=== PATIENT | male | born 1985 | race Caucasian/White ===

== ENCOUNTER 2019-03-24 00:08 | Emergency (ER) | payer SELFPAY ==
[2019-03-24 00:16] VITALS: BP 128/77; PULSE 75; TEMP 97.8; BMI 24.3
--- NOTE | 2019-03-24 00:27 | PDOC ---
History of Present Illness - General Chief Complaint: Dysphagia Stated Complaint: FEELS SOMETHING IN HIS THROAT Time Seen by Provider: 03/24/19 00:20 History Source: Patient Exam Limitations: No Limitations - History of Present Illness Initial Comments: 03/24/19 00:28 This is a 34-year-old male who comes in complaining of some dysphasia. Patient said he has a history of GERD in the past has had a number of upper GI endoscopies that did show some gastritis but never esophagitis. Patient says he is able to eat and drink but it is uncomfortable. Patient is not taking any medications at this time. Patient denies any dark or bloody stools. Patient denies any nausea vomiting or diarrhea. Patient denies any abdominal pain fevers or chills. Patient is otherwise healthy. Allergies: as per nursing notes Past Medical History: none Social history: Lives with family. No smoking. No alcohol. No illicit drugs. Surgical history: None General: No fevers or chills, no weakness, no weight loss HEENT: No change in vision. No sore throat,. No ear pain CardioVascular: no chest discomfort. No shortness of breath Respiratory:No cough, or wheezing. Gastrointestinal: no nausea, vomiting, diarrhea or constipation, No rectal bleeding Genitourinary: No dysuria, hematuria, or frequency Musculoskeletal: No joint or muscle pain or swelling Neurologic: No headache, vertigo, dizziness or loss of consciousness Psychiatric: nor depression Skin: No rashes or easy bruising Endocrine: no increased thirst or abnormal weight change Allergic: no skin or latex allergy All other systems reviewed and normal GENERAL: The patient is awake, alert, and fully oriented, in no acute distress. HEAD: Normal with no signs of trauma. EYES: Pupils equal, round and reactive to light, extraocular movements intact, sclera anicteric, conjunctiva clear. EXTREMITIES:atraumatic, Normal range of motion, no edema. NEUROLOGICAL: Normal speech, normal gait. PSYCH: Normal mood, normal affect. SKIN: Warm, Dry, normal turgor, no rashes or lesions noted. Assessment and plan: This is a 34-year-old male with history of GERD and some discomfort with swallowing. Patient is recently discharged from the and was referred to the [facility] for further evaluation and a GI follow-up. Past History - Past Medical History Allergies/Adverse Reactions: Allergies Allergy/AdvReac Type Severity Reaction Status Date / Time No Known Allergies Allergy Unverified 03/24/19 00:11 Home Medications: Ambulatory Orders NK [No Known Home Medication] 03/24/19 COPD: No GI Disorders: Yes (GERD) - Immunization History Immunization Up to Date: Yes - Psycho Social/Smoking Cessation Hx Smoking History: Never smoked *Physical Exam - Vital Signs Last Vital Signs Temp Pulse Resp BP Pulse Ox 97.8 F 75 16 128/77 98 03/24/19 00:13 03/24/19 00:13 03/24/19 00:13 03/24/19 00:13 03/24/19 00:13 Discharge - Discharge Information Problems reviewed: Yes Clinical Impression/Diagnosis: GERD (gastroesophageal reflux disease) Qualifiers: Esophagitis presence: esophagitis presence not specified Qualified Code(s): K21.9 - Gastro-esophageal reflux disease without esophagitis Condition: Stable Disposition: HOME - Admission No - Follow up/Referral - Patient Discharge Instructions Additional Instructions: Call tomorrow morning to the [facility] in [place] and asked to be seen by 1 of the medical doctors there. Return to the emergency department immediately with ANY new, persistent or worsening symptoms. Continue any medications as previously prescribed by your physician. You should follow up with your primary doctor as soon as possible regarding today's emergency department visit. . Please make sure your doctor reviews the results of your emergency evaluation. Thank you for coming to the Emergency Department today for your care. It was a pleasure to see you today. Please note that your evaluation is INCOMPLETE until you follow-up with your doctor. - Post Discharge Activity
== END 2019-03-24 00:29 | disposition home or self-care (01) ==
LOC: FER 00:08
DX: K21.9 Gastro-esophageal reflux disease without esophagitis (principal)
CPT/HCPCS: 99282-25